=== PATIENT | male | born 1950 | race Caucasian/White ===

== ENCOUNTER → 2018-06-18 | Outpatient (REF) | payer MEDICARE, OTHER | LOC: M LAB REF 12:31 | PROVIDERS: ATTEND Physician Assistant | DX: J02.9 Acute pharyngitis, unspecified (principal) ==

== ENCOUNTER 2019-08-27 19:59 | Emergency (ER) | payer MEDICARE, OTHER ==
[~2019-08-27] VITALS: Ht 190.5 cm; Wt 113.6 kg
[2019-08-27] MEDS ORDERED: ATOR40TA75 (20:52)
[2019-08-27] MEDS ORDERED: METF750T36 (20:52)
[2019-08-27] MEDS ORDERED: FARXIGA (20:52)
[2019-08-27] MEDS ORDERED: ROPI0.253 (20:52)
[2019-08-27 20:54] LABS: BASO % 0.6 % (0.0-1.0); EOS # 0.1 10^3/uL (0.0-0.5); EOS % 1.9 % (0.0-3.0); HEMATOCRIT 45.4 % (42.0-52.0); HEMOGLOBIN 15.4 g/dl (13.5-17.5); LYMPH # 2.1 10^3/uL (1.5-5.0); LYMPH % 30.8 % (24.0-44.0); MEAN CORPUSCULAR HEMOGLOBIN 30.9 pg (27.0-33.0); MEAN CORPUSCULAR HGB CONC 33.9 g/dl (32.0-36.5); MEAN CORPUSCULAR VOLUME 91.2 fl (80.0-96.0); MONO # 0.9 10^3/uL (0.0-0.8); MONO % 13.1 % (0.0-5.0); NEUTROPHILS # 3.7 10^3/uL (1.5-8.5); NEUTROPHILS % 53.5 % (36.0-66.0); PLATELET COUNT, AUTOMATED 268 10^3/uL (150-450); RED BLOOD COUNT 4.98 10^6/uL (4.30-6.10); WHITE BLOOD COUNT 6.9 10^3/uL (4.0-10.0)
[2019-08-27 21:13] LABS: BLOOD UREA NITROGEN 19 MG/DL (7-18); CALCIUM LEVEL 8.5 MG/DL (8.8-10.2); CARBON DIOXIDE LEVEL 26 MEQ/L (21-32); CHLORIDE LEVEL 111 MEQ/L (98-107); CREATININE FOR GFR 1.14 MG/DL (0.70-1.30); GLOMERULAR FILTRATION RATE > 60.0 (>49); GLUCOSE, FASTING 142 MG/DL (70-100); POTASSIUM SERUM 4.2 MEQ/L (3.5-5.1); SODIUM LEVEL 145 MEQ/L (136-145)
[2019-08-27] MEDS ORDERED: ASPI81TA86 PO (21:35)
[2019-08-27 22:07] VITALS: BP 147/72
--- NOTE | 2019-08-28 08:46 | ECGEPIP ---
[facility] - ED Test Date: 2019-08-27 Pat Name: ANNETTE TEJADA Department: Room: - Gender: Male [employer]: : 1950 Requested By: POPPY GUNTER Order Number: [id number] Reading MD: Karthik Ramirez Measurements Intervals [place] Rate: 67 P: 50 VA: 154 QRS: -7 QRSD: 101 T: 42 QT: 421 QTc: 445 Interpretive Statements SINUS RHYTHM WITH OCCASIONAL VENTRICULAR PREMATURE COMPLEXES NO PRIORS FOR COMPARISON Electronically Signed on 08-28-2019 8:45:39 EDT by Karthik Ramirez
--- NOTE | 2019-08-28 10:25 | REP ---
REASON FOR EXAM: Chest pain. COMPARISON: 04/11/2013 The technique utilized in obtaining the radiograph has magnified the cardiac silhouette and accentuated the interstitial markings. Minimal curvilinear opacities are seen in the left lower lobe. The heart is not enlarged. The pleural angles are sharp, and the lung oden are otherwise clear. The osseous structures are stable and intact. IMPRESSION: Suspect subtle subsegmental atelectatic changes in the left lower lobe. Electronically Signed by Sky Okeefe DO 08/28/2019 10:34 A
== END 2019-08-27 22:17 | disposition home or self-care (01) ==
LOC: M ED 19:59
DX: R05 Cough (principal); R45.82 Worries; E78.5 Hyperlipidemia, unspecified; Z79.82 Long term (current) use of aspirin; Z79.84 Long term (current) use of oral hypoglycemic drugs; Z79.899 Other long term (current) drug therapy

== ENCOUNTER → 2021-06-06 | Outpatient (CLI) | payer MEDICARE, OTHER ==
[~2021-06-06] MED LIST: ASPI81TA86 PO; ATOR40TA75; FARXIGA; METF750T36; ROPI0.253
== END ==
LOC: M WHC 11:04
PROVIDERS: ATTEND Physician Assistant Medical
DX: R13.10 Dysphagia, unspecified (principal); R22.1 Localized swelling, mass and lump, neck

== ENCOUNTER → 2021-08-13 | Outpatient (REF) | payer MEDICARE, OTHER | LOC: M SFHCDERM 06:35 | PROVIDERS: ATTEND Dermatology | DX: D22.4 Melanocytic nevi of scalp and neck (principal) ==

== ENCOUNTER → 2021-09-04 | Outpatient (CLI) | payer MEDICARE, OTHER ==
[~2021-09-04] MED LIST changes: +ISOVUE-370 76% 100ML VIAL As Ordered ONE
== END ==
LOC: M RAD 15:31
PROVIDERS: ATTEND Physician Assistant Medical
DX: J35.8 Other chronic diseases of tonsils and adenoids (principal); R22.1 Localized swelling, mass and lump, neck
CPT/HCPCS: 70491; Q9967

== ENCOUNTER → 2021-09-29 | Outpatient (CLI) | payer MEDICARE, OTHER ==
[~2021-09-29] MED LIST changes: -ISOVUE-370 76% 100ML VIAL As Ordered ONE
== END ==
LOC: M LABSMTC 10:17
PROVIDERS: ATTEND Otolaryngology
DX: Z20.822 Contact with and (suspected) exposure to COVID-19 (principal)

== ENCOUNTER 2022-02-07 16:25 | Emergency (ER) | payer MEDICARE, OTHER ==
[~2022-02-07] VITALS: Ht 188 cm; Wt 51.1 kg
[~2022-02-07 16:25] MED LIST changes: -ACYC1TAB PO; -ALLE180T33 PO; -ALLO300T2 PO; -PANT40TA29 PO; -TAMS1CAP17 PO; -VITA100093 PO
[2022-02-08 00:31] VITALS: BP 143/85
[2022-02-08] MEDS ORDERED: ALLO300T2 PO (01:28)
[2022-02-08] MEDS ORDERED: ROPI0.253 PO (01:28)
[2022-02-08] MEDS ORDERED: TAMS1CAP17 PO (01:28)
[2022-02-08] MEDS ORDERED: ACYC1TAB PO (01:28)
[2022-02-08] MEDS ORDERED: PANT40TA29 PO (01:28)
[2022-02-08] MEDS ORDERED: VITA100093 PO (01:30)
[2022-02-08] MEDS ORDERED: HOME MED LIST COMPLETE! XX SCH (01:30)
[2022-02-08] MEDS ORDERED: ALLE180T33 PO (01:30)
== END 2022-02-08 01:58 | disposition home or self-care (01) ==
LOC: M ED 16:25
DX: R77.8 Other specified abnormalities of plasma proteins (principal); E11.9 Type 2 diabetes mellitus without complications; I10 Essential (primary) hypertension; E78.5 Hyperlipidemia, unspecified; F10.10 Alcohol abuse, uncomplicated; Z79.4 Long term (current) use of insulin; Z79.810 Long term (current) use of selective estrogen receptor modulators (SERMs); Z79.83 Long term (current) use of bisphosphonates; Z79.899 Other long term (current) drug therapy

== ENCOUNTER → 2022-02-07 | Outpatient (REF) | payer MEDICARE, OTHER ==
[~2022-02-07] MED LIST changes: +ACYC1TAB PO; +ALLE180T33 PO; +ALLO300T2 PO; -ATOR40TA75; +ATOR40TA75 PO; +BAYE81TA7 PO; +FARX1TAB3 PO; -METF750T36; +METF750T36 PO; +PANT40TA29 PO; -ROPI0.253; +ROPI0.253 PO; +TAMS1CAP17 PO; +VITA100093 PO
== END ==
LOC: M LAB REF 10:49
PROVIDERS: ATTEND Internal Medicine
DX: R94.31 Abnormal electrocardiogram [ECG] [EKG] (principal)

== ENCOUNTER → 2022-04-07 | Outpatient (REF) | payer MEDICARE, OTHER ==
[~2022-04-07] MED LIST changes: +ACYC1TAB PO; +ALLE180T33 PO; +ALLO300T2 PO; +PANT40TA29 PO; +TAMS1CAP17 PO; +VITA100093 PO
[2022-04-07 12:59] LABS: LYMPHOCYTES 5 % (16-44); METAMYELOCYTES 1 % (0-0); MONOCYTES 13 % (0-5); MYELOCYTES 1 % (0-0); NEUTROPHILS 74 % (28-66)
[2022-04-07 13:00] LABS: PLATELET ESTIMATE NORMAL (NORMAL)
[2022-04-07 13:04] LABS: ANISOCYTOSIS 1+; TOXIC GRANULATION 1+
== END ==
LOC: M LAB REF 11:57
PROVIDERS: ATTEND Internal Medicine
DX: C85.80 Other specified types of non-Hodgkin lymphoma, unspecified site (principal)

== ENCOUNTER 2022-06-01 08:11 | Emergency (ER) | payer MEDICARE, OTHER ==
[~2022-06-01] VITALS: Ht 188 cm; Wt 107.5 kg
[2022-06-01 08:58] LABS: MEAN CORPUSCULAR HEMOGLOBIN 29.9 pg (27.0-33.0); MEAN CORPUSCULAR HGB CONC 33.3 g/dl (32.0-36.5); MEAN CORPUSCULAR VOLUME 89.6 fl (80.0-96.0); PLATELET COUNT, AUTOMATED 105 10^3/uL (150-450); RED BLOOD COUNT 4.69 10^6/uL (4.30-6.10); WHITE BLOOD COUNT 13.7 10^3/uL (4.0-10.0)
[2022-06-01] MEDS ORDERED: MAGN400T33 (09:04)
[2022-06-01] MEDS ORDERED: LISI5TAB11 (09:04)
[2022-06-01] MEDS ORDERED: ELIQ2.5T PO (09:04)
[2022-06-01 09:20] LABS: INR 1.39; PROTHROMBIN TIME 17.3 SECONDS (12.5-14.5)
[2022-06-01 09:21] LABS: PARTIAL THROMBOPLASTIN TIME 25.8 SECONDS (24.8-34.2)
[2022-06-01 09:22] LABS: LIPASE 27 U/L (12-53)
[2022-06-01 09:23] LABS: CPK CREATINE PHOSPHOKINASE 56 U/L (46-171)
[2022-06-01 09:24] LABS: ALBUMIN 3.5 G/DL (3.2-5.2); ALKALINE PHOSPHATASE 70 U/L (46-116); ALT/SGPT 14 U/L (7.0-40); AST/SGOT 26 U/L (<34); BILIRUBIN,DIRECT 0.4 MG/DL (<0.4); BILIRUBIN,TOTAL 1.2 MG/DL (0.3-1.2); BLOOD UREA NITROGEN 15 MG/DL (9-23); CALCIUM LEVEL 8.6 MG/DL (8.3-10.6); CARBON DIOXIDE LEVEL 25 MMOL/L (20-31); CHLORIDE LEVEL 106 MMOL/L (98-107); CK-MB VALUE MASS 1.6 NG/ML (<3.6); CREATININE FOR GFR 1.12 MG/DL (0.70-1.30); GLOMERULAR FILTRATION RATE > 60.0 (>42); GLUCOSE, FASTING 143 MG/DL (74-106); MB/CK RELATIVE INDEX 2.85 (< OR =4); POTASSIUM SERUM 3.3 MMOL/L (3.5-5.1); SODIUM LEVEL 140 MMOL/L (136-145); TOTAL PROTEIN 6.6 G/DL (5.7-8.2)
[2022-06-01 09:25] LABS: FREE T4 1.15 NG/DL (0.89-1.76); THYROID STIMULATING HORMONE 1.041 uIU/ML (0.55-4.78)
[2022-06-01 09:26] LABS: ATYPICAL LYMPH 4 % (0-5); LYMPHOCYTES 15 % (16-44); METAMYELOCYTES 11 % (0-0); MONOCYTES 31 % (0-5); MYELOCYTES 6 % (0-0); NEUTROPHILS 23 % (28-66); PROMYELOCYTES 2 % (0-0)
[2022-06-01 09:27] LABS: ANISOCYTOSIS 1+; OVALOCYTES 1+; PLATELET ESTIMATE DECREASED (NORMAL)
[2022-06-01 09:28] LABS: POIKILOCYTOSIS 1+; POLYCHROMASIA 1+
[2022-06-01] MEDS ORDERED: ISOVUE-370 76% 100ML VIAL As Ordered ONE (10:02)
[2022-06-01 10:21] LABS: CK-MB VALUE MASS 1.6 NG/ML (<3.6)
[2022-06-01 10:26] LABS: MB/CK RELATIVE INDEX 3.07 (< OR =4)
[2022-06-01 12:15] LABS: CK-MB VALUE MASS 1.5 NG/ML (<3.6)
[2022-06-01 12:16] LABS: MB/CK RELATIVE INDEX 3.57 (< OR =4)
[2022-06-01] MEDS ORDERED: POTASSIUM CHLORIDE 10MEQ SR TABLET PO ONE (12:50)
[2022-06-01] MEDS ORDERED: ZANU80CA PO (12:57)
[2022-06-01] MEDS ORDERED: VENC100T PO (12:57)
[2022-06-01] MEDS ORDERED: METO1TAB32 (12:57)
[2022-06-01] MEDS ORDERED: POTA1TAB14 PO (13:04)
[2022-06-01 13:10] VITALS: BP 119/57
== END 2022-06-01 13:18 | disposition home or self-care (01) ==
LOC: M ED 08:11
DX: R07.9 Chest pain, unspecified (principal); E87.6 Hypokalemia; I48.0 Paroxysmal atrial fibrillation; E11.9 Type 2 diabetes mellitus without complications; E78.5 Hyperlipidemia, unspecified; Z86.79 Personal history of other diseases of the circulatory system; Z79.01 Long term (current) use of anticoagulants; Z79.02 Long term (current) use of antithrombotics/antiplatelets; Z79.4 Long term (current) use of insulin; Z79.811 Long term (current) use of aromatase inhibitors; Z79.899 Other long term (current) drug therapy
CPT/HCPCS: 36415; 71045; 71275; 80048; 80076; 82550; 82553; 83690; 84439; 84443; 84484; 85025; 85610; 85730; 87486; 87581; 87633; 87798; 93005; 93041; 94760; 99285; Q9967

== ENCOUNTER 2022-07-11 11:14 | Inpatient (IN) | payer MEDICARE, OTHER ==
[~2022-07-11] VITALS: Ht 188 cm; Wt 109.7 kg
[~2022-07-11 11:14] MED LIST changes: +ELIQ2.5T PO; +LISI5TAB11; +MAGN400T33; +METO1TAB32 PO; +POTA-298 PO; +VENC100T PO; +ZANU80CA PO
[2022-07-11 12:10] LABS: BASO % 0.2 % (0.0-1.0); EOS % 0.2 % (0.0-3.0); HEMATOCRIT 37.6 % (42.0-52.0); HEMOGLOBIN 12.6 g/dl (13.5-17.5); LYMPH # 0.4 10^3/uL (1.5-5.0); LYMPH % 6.5 % (24.0-44.0); MEAN CORPUSCULAR HGB CONC 33.5 g/dl (32.0-36.5); MEAN CORPUSCULAR VOLUME 92.4 fl (80.0-96.0); MONO # 0.8 10^3/uL (0.0-0.8); MONO % 13.2 % (2.0-8.0); NEUTROPHILS # 4.7 10^3/uL (1.5-8.5); NEUTROPHILS % 78.7 % (36.0-66.0); PLATELET COUNT, AUTOMATED 145 10^3/uL (150-450); RED BLOOD COUNT 4.07 10^6/uL (4.30-6.10)
[2022-07-11 12:38] LABS: ALBUMIN 3.2 G/DL (3.2-5.2); ALKALINE PHOSPHATASE 46 U/L (46-116); ALT/SGPT 12 U/L (7.0-40); AST/SGOT < 8 U/L (<34); BILIRUBIN,TOTAL 0.7 MG/DL (0.3-1.2); BLOOD UREA NITROGEN 19 MG/DL (9-23); CALCIUM LEVEL 7.6 MG/DL (8.3-10.6); CARBON DIOXIDE LEVEL 23 MMOL/L (20-31); CHLORIDE LEVEL 111 MMOL/L (98-107); GLOMERULAR FILTRATION RATE > 60.0 (>42); GLUCOSE, FASTING 254 MG/DL (74-106); POTASSIUM SERUM 4.8 MMOL/L (3.5-5.1); SODIUM LEVEL 142 MMOL/L (136-145); TOTAL PROTEIN 5.5 G/DL (5.7-8.2)
[2022-07-11] MEDS ORDERED: NS 500 ML IV ONE (12:50)
[2022-07-11 13:14] LABS: RSV AMPLIFICATION NEGATIVE (NEGATIVE)
[2022-07-11 14:05] LABS: CK-MB VALUE MASS 2.6 NG/ML (<3.6)
[2022-07-11 14:06] LABS: CPK CREATINE PHOSPHOKINASE 120 U/L (46-171); MB/CK RELATIVE INDEX 2.16 (< OR =4)
[2022-07-11 14:06] LABS: CK-MB VALUE MASS 2.3 NG/ML (<3.6); MB/CK RELATIVE INDEX 2.03 (< OR =4)
[2022-07-11] MEDS ORDERED: LOSA25TA13 PO (16:16)
[2022-07-11] MEDS ORDERED: ELIQ5TAB PO (16:16)
[2022-07-11] MEDS ORDERED: ROPI0.253 PO (16:16)
[2022-07-11] MEDS ORDERED: SPIR-10 PO (16:16)
[2022-07-11] MEDS ORDERED: HOME MED LIST COMPLETE! XX SCH (16:20)
[2022-07-11] MEDS ORDERED: DEXTROSE 50% 50ML SYRINGE IV PRN (16:30)
[2022-07-11] MEDS ORDERED: GLUCOSE 4GM CHEW TABLET PO PRN (16:30)
[2022-07-11] MEDS ORDERED: GLUCAGON INJ 1MG VIAL SC PRN (16:30)
[2022-07-11] MEDS ORDERED: NS 1,000 ML IV SCH (16:50)
[2022-07-11] MEDS: INSULIN LISPRO (NovoLOG) PER UNIT SC SCH ×2 (17:30→20:17)
[2022-07-11 17:50] VITALS: BP 139/79
[2022-07-11 20:00] VITALS: BP 117/62
[2022-07-11] MEDS: TAMSULOSIN 0.4 MG CAP PO SCH (20:22)
[2022-07-11] MEDS: FEXOFENADINE 60MG TAB PO SCH (20:22)
[2022-07-11] MEDS: ACYCLOVIR 200 MG CAPSULE PO SCH (20:22)
[2022-07-11] MEDS: ATORVASTATIN 20 MG TAB PO SCH (20:22)
[2022-07-11] MEDS: PANTOPRAZOLE 40MG TAB (PROTONIX) PO SCH (20:23)
[2022-07-11] MEDS: APIXABAN 5 MG TAB (ELIQUIS) PO SCH (20:24)
[2022-07-11] MEDS ORDERED: LOSARTAN 25 MG TAB PO SCH (21:00)
[2022-07-11] MEDS ORDERED: rOPINIRole 0.25 MG TAB(REQUIP) PO SCH (21:00)
[2022-07-11 23:45] VITALS: BP 108/63
[2022-07-12 03:24] VITALS: BP 119/70
[2022-07-12 06:11] LABS: HEMATOCRIT 36.8 % (42.0-52.0); HEMOGLOBIN 12.3 g/dl (13.5-17.5); MEAN CORPUSCULAR HEMOGLOBIN 30.5 pg (27.0-33.0); MEAN CORPUSCULAR HGB CONC 33.4 g/dl (32.0-36.5); MEAN CORPUSCULAR VOLUME 91.3 fl (80.0-96.0); PLATELET COUNT, AUTOMATED 135 10^3/uL (150-450); RED BLOOD COUNT 4.03 10^6/uL (4.30-6.10); WHITE BLOOD COUNT 3.8 10^3/uL (4.0-10.0)
[2022-07-12 06:29] LABS: BLOOD UREA NITROGEN 15 MG/DL (9-23); CALCIUM LEVEL 7.9 MG/DL (8.3-10.6); CARBON DIOXIDE LEVEL 24 MMOL/L (20-31); CHLORIDE LEVEL 112 MMOL/L (98-107); CREATININE FOR GFR 1.02 MG/DL (0.70-1.30); GLOMERULAR FILTRATION RATE > 60.0 (>42); GLUCOSE, FASTING 128 MG/DL (74-106); MAGNESIUM LEVEL 1.3 MG/DL (1.8-2.4); PHOSPHORUS LEVEL 3.5 MG/DL (2.4-5.1); POTASSIUM SERUM 3.9 MMOL/L (3.5-5.1); SODIUM LEVEL 143 MMOL/L (136-145)
[2022-07-12 08:13] VITALS: BP 123/70
[2022-07-12] MEDS: INSULIN LISPRO (NovoLOG) PER UNIT SC SCH ×4 (08:18→20:03)
[2022-07-12] MEDS: DAPAGLIFLOZIN PROPANEDIOL 10MG TABLET (FARXIGA) PO SCH (08:18)
[2022-07-12] MEDS: MAG SULF 1GM/100ML (MAG RUN) 1 GM in IV 1 EA IV SCH ×3 (08:18→10:00)
[2022-07-12] MEDS: APIXABAN 5 MG TAB (ELIQUIS) PO SCH ×2 (08:19→20:15)
[2022-07-12] MEDS: ACYCLOVIR 200 MG CAPSULE PO SCH ×2 (08:19→20:14)
[2022-07-12] MEDS: VITAMIN D 1,000 INTERNATIONAL UNITS TABLET PO SCH (08:19)
[2022-07-12] MEDS: PANTOPRAZOLE 40MG TAB (PROTONIX) PO SCH ×2 (08:19→20:15)
[2022-07-12] MEDS ORDERED: SPIRONOLACTONE 6.25 MG PER 1/4 TAB PO SCH (11:00)
[2022-07-12] MEDS ORDERED: LOSARTAN 25 MG TAB PO SCH ×2 (11:00→21:00)
[2022-07-12] MEDS ORDERED: PILL CUTTER 1 EACH XX PRN (11:05)
[2022-07-12 11:32] LABS: BASO % 0.3 % (0.0-1.0); EOS % 0.5 % (0.0-3.0); LYMPH % 25.3 % (24.0-44.0); MONO # 0.7 10^3/uL (0.0-0.8); MONO % 16.9 % (2.0-8.0); NEUTROPHILS # 2.2 10^3/uL (1.5-8.5); NEUTROPHILS % 56.7 % (36.0-66.0)
[2022-07-12 12:29] VITALS: BP 124/68
[2022-07-12 12:29] LABS: ATYPICAL LYMPH 4 % (0-5); BASOPHILS 1 % (0-1); EOSINOPHILS 1 % (0-3); LYMPHOCYTES 23 % (16-44); MONOCYTES 14 % (0-5); NEUTROPHILS 56 % (28-66)
[2022-07-12 12:30] LABS: ANISOCYTOSIS 1+
[2022-07-12 12:32] LABS: POIKILOCYTOSIS 1+
[2022-07-12 12:33] LABS: PLATELET ESTIMATE NORMAL (NORMAL)
[2022-07-12] MEDS: METOPROLOL SUCC *XL* 25MG TAB (TopROL *XL*) PO SCH (13:06)
[2022-07-12 16:00] VITALS: BP 131/77
[2022-07-12 20:00] VITALS: BP 138/74
[2022-07-12] MEDS: FEXOFENADINE 60MG TAB PO SCH (20:14)
[2022-07-12] MEDS: TAMSULOSIN 0.4 MG CAP PO SCH (20:14)
[2022-07-12] MEDS: ATORVASTATIN 20 MG TAB PO SCH (20:15)
[2022-07-12] MEDS ORDERED: rOPINIRole 0.25 MG TAB(REQUIP) PO SCH (21:00)
[2022-07-13] VITALS: BP 142/73
[2022-07-13 04:00] VITALS: BP 146/77
[2022-07-13 06:38] LABS: BASO % 0.3 % (0.0-1.0); EOS % 0.3 % (0.0-3.0); HEMOGLOBIN 12.5 g/dl (13.5-17.5); LYMPH # 0.7 10^3/uL (1.5-5.0); LYMPH % 18.8 % (24.0-44.0); MEAN CORPUSCULAR HEMOGLOBIN 30.8 pg (27.0-33.0); MEAN CORPUSCULAR HGB CONC 33.8 g/dl (32.0-36.5); MEAN CORPUSCULAR VOLUME 91.1 fl (80.0-96.0); MONO # 0.6 10^3/uL (0.0-0.8); MONO % 16.7 % (2.0-8.0); NEUTROPHILS # 2.4 10^3/uL (1.5-8.5); NEUTROPHILS % 63.6 % (36.0-66.0); PLATELET COUNT, AUTOMATED 131 10^3/uL (150-450); RED BLOOD COUNT 4.06 10^6/uL (4.30-6.10); WHITE BLOOD COUNT 3.7 10^3/uL (4.0-10.0)
[2022-07-13 06:54] LABS: BLOOD UREA NITROGEN 11 MG/DL (9-23); CALCIUM LEVEL 7.4 MG/DL (8.3-10.6); CARBON DIOXIDE LEVEL 24 MMOL/L (20-31); CHLORIDE LEVEL 111 MMOL/L (98-107); CREATININE FOR GFR 0.89 MG/DL (0.70-1.30); GLOMERULAR FILTRATION RATE > 60.0 (>42); GLUCOSE, FASTING 122 MG/DL (74-106); POTASSIUM SERUM 3.8 MMOL/L (3.5-5.1); SODIUM LEVEL 143 MMOL/L (136-145)
[2022-07-13] MEDS: INSULIN LISPRO (NovoLOG) PER UNIT SC SCH (07:30)
[2022-07-13 07:43] VITALS: BP 126/69
[2022-07-13] MEDS ORDERED: LOSARTAN 25 MG TAB PO SCH (09:00)
[2022-07-13] MEDS ORDERED: SPIRONOLACTONE 12.5MG PER 1/2 TABLET PO SCH (09:00)
[2022-07-13] MEDS: ACYCLOVIR 200 MG CAPSULE PO SCH (09:08)
[2022-07-13] MEDS: PANTOPRAZOLE 40MG TAB (PROTONIX) PO SCH (09:08)
[2022-07-13] MEDS: DAPAGLIFLOZIN PROPANEDIOL 10MG TABLET (FARXIGA) PO SCH (09:08)
[2022-07-13] MEDS: VITAMIN D 1,000 INTERNATIONAL UNITS TABLET PO SCH (09:09)
[2022-07-13] MEDS: APIXABAN 5 MG TAB (ELIQUIS) PO SCH (09:09)
[2022-07-13] MEDS: METOPROLOL SUCC *XL* 25MG TAB (TopROL *XL*) PO SCH (09:09)
[2022-07-13] MEDS ORDERED: METOPROLOL SUCC *XL* 25MG TAB (TopROL *XL*) PO ONE (10:00)
[2022-07-13 10:09] VITALS: BP 126/69
[2022-07-14] MEDS ORDERED: METOPROLOL SUCC (TopROL XL) 50MG **XL** TAB PO SCH (09:00)
== END 2022-07-13 11:04 | disposition home or self-care (01) | DRG 308 ==
LOC: M ED 11:14 → EDBD 11:14 → M PCU 16:27 → ENRESERV 16:40
PROVIDERS: ADMIT Internal Medicine; ATTEND Student in an Organized Health Care Education/Training Program
DX: I48.0 Paroxysmal atrial fibrillation (principal); D61.810 Antineoplastic chemotherapy induced pancytopenia; C85.90 Non-Hodgkin lymphoma, unspecified, unspecified site; I50.32 Chronic diastolic (congestive) heart failure; R55 Syncope and collapse; E55.9 Vitamin D deficiency, unspecified; K21.9 Gastro-esophageal reflux disease without esophagitis; E83.42 Hypomagnesemia; E11.9 Type 2 diabetes mellitus without complications; I11.0 Hypertensive heart disease with heart failure; G25.81 Restless legs syndrome; N40.0 Benign prostatic hyperplasia without lower urinary tract symptoms; I47.20 Ventricular tachycardia, unspecified; E78.5 Hyperlipidemia, unspecified; Z79.01 Long term (current) use of anticoagulants; Z79.899 Other long term (current) drug therapy; Z85.828 Personal history of other malignant neoplasm of skin; Z98.41 Cataract extraction status, right eye; Z98.42 Cataract extraction status, left eye

== ENCOUNTER 2022-10-10 16:59 | Emergency (ER) | payer MEDICARE, OTHER ==
[~2022-10-10] VITALS: Ht 188 cm; Wt 102.7 kg
[~2022-10-10 16:59] MED LIST changes: +ELIQ5TAB PO; +LOSA25TA13 PO; -ROPI0.253 PO; +ROPI5TAB19 PO; +SPIR-10 PO
[2022-10-11 02:40] LABS: BASO % 0.2 % (0.0-1.0); HEMATOCRIT 38.4 % (42.0-52.0); HEMOGLOBIN 13.2 g/dl (13.5-17.5); LYMPH # 1.1 10^3/uL (1.5-5.0); LYMPH % 23.9 % (24.0-44.0); MEAN CORPUSCULAR HEMOGLOBIN 31.7 pg (27.0-33.0); MEAN CORPUSCULAR HGB CONC 34.4 g/dl (32.0-36.5); MEAN CORPUSCULAR VOLUME 92.3 fl (80.0-96.0); MONO # 1.1 10^3/uL (0.0-0.8); MONO % 24.8 % (2.0-8.0); NEUTROPHILS # 2.2 10^3/uL (1.5-8.5); NEUTROPHILS % 49.1 % (36.0-66.0); PLATELET COUNT, AUTOMATED 165 10^3/uL (150-450); RED BLOOD COUNT 4.16 10^6/uL (4.30-6.10); WHITE BLOOD COUNT 4.5 10^3/uL (4.0-10.0)
[2022-10-11 02:53] LABS: CK-MB VALUE MASS 1.7 NG/ML (<3.6)
[2022-10-11 02:54] LABS: MB/CK RELATIVE INDEX 2.07 (< OR =4)
[2022-10-11 03:54] LABS: CK-MB VALUE MASS 1.7 NG/ML (<3.6)
[2022-10-11 03:55] LABS: MB/CK RELATIVE INDEX 2.07 (< OR =4)
[2022-10-11 07:43] VITALS: TEMP 98
[2022-10-11 08:30] VITALS: O2SAT 95
[2022-10-11 08:42] VITALS: BP 136/69
== END 2022-10-11 09:38 | disposition home or self-care (01) ==
LOC: M ED 16:59
DX: S20.214A Contusion of middle front wall of thorax, initial encounter (principal); W19.XXXA Unspecified fall, initial encounter; R42 Dizziness and giddiness; R00.1 Bradycardia, unspecified; E11.9 Type 2 diabetes mellitus without complications; I10 Essential (primary) hypertension; E78.5 Hyperlipidemia, unspecified; K21.9 Gastro-esophageal reflux disease without esophagitis; N40.0 Benign prostatic hyperplasia without lower urinary tract symptoms; Z79.84 Long term (current) use of oral hypoglycemic drugs; Z79.01 Long term (current) use of anticoagulants; Z79.899 Other long term (current) drug therapy

== ENCOUNTER → 2023-02-11 | Outpatient (CLI) | payer MEDICARE, OTHER ==
[2023-02-11 13:15] LABS: IMMUNOGLOBULIN G 784 MG/DL (650-1600); RHEUMATOID FACTOR QUANT < 3.5 IU/ML (<14)
[2023-02-12 20:15] LABS: CYCLIC CITRULLINATED PEPTIDE 6 units (0-19); SSA SJOGRENS A <0.2 AI (0.0-0.9); SSB SJOGRENS B <0.2 AI (0.0-0.9)
== END ==
LOC: M LAB 11:51
PROVIDERS: ATTEND Internal Medicine Pulmonary Disease
DX: J47.9 Bronchiectasis, uncomplicated (principal)

== ENCOUNTER → 2023-08-03 | Outpatient (CLI) | payer MEDICARE, OTHER | LOC: M WUC 14:12 | PROVIDERS: ATTEND Physician Assistant Medical | DX: L03.012 Cellulitis of left finger (principal) ==

== ENCOUNTER → 2024-02-23 | Outpatient (CLI) | payer MEDICARE, OTHER ==
[2024-02-23 10:18] LABS: IMMUNOGLOBULIN A 222.1 MG/DL (40-350); IMMUNOGLOBULIN G 719 MG/DL (650-1600)
[2024-02-23 11:06] LABS: IMMUNOGLOBULIN E < 2.5 IU/ML (0-378); IMMUNOGLOBULIN M < 21.0 MG/DL (50-300)
== END ==
LOC: M LAB 09:16
PROVIDERS: ATTEND Internal Medicine Pulmonary Disease
DX: J47.9 Bronchiectasis, uncomplicated (principal)

== ENCOUNTER 2024-03-14 10:22 | Day surgery (SDC) | payer MEDICARE, OTHER ==
[~2024-03-14] VITALS: Ht 188 cm; Wt 101.2 kg
[~2024-03-14 10:22] MED LIST changes: +ENTR1TAB PO; +MAGN400T2 PO
[2024-03-14] MEDS ORDERED: propofoL 200 MG/20 ML VIAL As Ordered ONE (10:23)
[2024-03-14] MEDS ORDERED: LIDOCAINE 2% 100MG/5ML SDV (FOR ANES.) As Ordered ONE (10:23)
[2024-03-14 11:41] VITALS: TEMP 97
[2024-03-14 12:08] VITALS: BP 120/61; O2SAT 97
== END 2024-03-14 12:15 | disposition home or self-care (01) ==
LOC: M OPP 10:22
PROVIDERS: ATTEND Internal Medicine Gastroenterology
DX: Z12.11 Encounter for screening for malignant neoplasm of colon (principal); Z86.0100 Personal history of colon polyps, unspecified; K64.8 Other hemorrhoids; K57.30 Diverticulosis of large intestine without perforation or abscess without bleeding; I48.91 Unspecified atrial fibrillation; E78.00 Pure hypercholesterolemia, unspecified; E11.9 Type 2 diabetes mellitus without complications; M19.90 Unspecified osteoarthritis, unspecified site; Z79.01 Long term (current) use of anticoagulants; Z79.84 Long term (current) use of oral hypoglycemic drugs; Z79.899 Other long term (current) drug therapy

== ENCOUNTER → 2024-10-24 | Outpatient (CLI) | payer MEDICARE, OTHER ==
[~2024-10-24] MED LIST changes: +ACYC-438 PO; -ACYC1TAB PO
[2024-10-24 13:43] LABS: INR 1.09
[2024-10-24 14:04] LABS: PLATELET COUNT, AUTOMATED 147 10^3/uL (150-450)
[2024-10-24 14:12] LABS: ERYTHROCYTE SEDIMENTATION RATE 25 mm/hr (0-20)
[2024-10-24 14:31] LABS: ALT/SGPT 23.0 U/L (7.0-40); AST/SGOT 23.0 U/L (<34); CALCIUM LEVEL 8.1 MG/DL (8.3-10.6); CARBON DIOXIDE LEVEL 26.0 MMOL/L (20-31); CHLORIDE LEVEL 106.0 MMOL/L (98-107); CREATININE FOR GFR 1.19 MG/DL (0.70-1.30); GLOMERULAR FILTRATION RATE 64.5 (>42); POTASSIUM SERUM 4.0 MMOL/L (3.5-5.1); SODIUM LEVEL 138.0 MMOL/L (136-145)
== END ==
LOC: M RAD 12:29
PROVIDERS: ATTEND Orthopaedic Surgery
DX: Z01.818 Encounter for other preprocedural examination (principal); M17.11 Unilateral primary osteoarthritis, right knee; Z79.01 Long term (current) use of anticoagulants; R94.31 Abnormal electrocardiogram [ECG] [EKG]; I70.0 Atherosclerosis of aorta; R91.8 Other nonspecific abnormal finding of lung field

== ENCOUNTER → 2024-11-28 | Outpatient (CLI) | payer MEDICARE, OTHER ==
[2024-11-28 09:26] LABS: PLATELET COUNT, AUTOMATED 201 10^3/uL (150-450)
[2024-11-28 09:36] LABS: INR 1.11
[2024-11-28 09:58] LABS: ERYTHROCYTE SEDIMENTATION RATE 18 mm/hr (0-20)
[2024-11-28 10:01] LABS: ALT/SGPT 22.0 U/L (7.0-40); AST/SGOT 17.0 U/L (<34); CALCIUM LEVEL 8.8 MG/DL (8.3-10.6); CARBON DIOXIDE LEVEL 26.0 MMOL/L (20-31); CHLORIDE LEVEL 107.0 MMOL/L (98-107); CREATININE FOR GFR 1.04 MG/DL (0.70-1.30); GLOMERULAR FILTRATION RATE 75.8 (>42); POTASSIUM SERUM 4.6 MMOL/L (3.5-5.1); SODIUM LEVEL 142.0 MMOL/L (136-145)
== END ==
LOC: M LAB 08:32
PROVIDERS: ATTEND Orthopaedic Surgery
DX: M17.11 Unilateral primary osteoarthritis, right knee (principal); Z79.01 Long term (current) use of anticoagulants